=== PATIENT | female | born 1935 | race Caucasian/White ===

== ENCOUNTER 2022-05-05 15:37 | Observation (INO) ==
[2022-05-05] MEDS ORDERED: IOPAMIDOL 100 ML BOTTLE IV ONE (15:38)
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
[2022-05-05 16:42] LABS: POC Calcium, Ionized 1.17 (1.16-1.32); POC Creatinine 0.7 (0.6-1.2)
--- NOTE | 2022-05-05 16:46 | Cat Scan Report ---
History: Migraine headaches, possible TIA TECHNIQUE: The brain was imaged without contrast in axial plane at 2.5 mm intervals. Sagittal and coronal reformats were created. The radiation exposure was limited using dose reduction technology. FINDINGS: Age-related degenerative changes are present with mild generalized cerebral atrophy. Subtle white matter disease is present with decreased attenuation in the centrum semiovale in both frontal and parietal lobes. There is no evidence of an infarct. No hemorrhage or mass effect are present. The ventricles are normal in size. No abnormal extra-axial fluid collection is present. Bone windows show no skull lesion. There has been mild progression of the degenerative changes since the prior head CT done on 12/05/13. IMPRESSION: Normal age-related degenerative changes and no acute abnormality Dr. Elizalde was called with the report Interpreted and Authenticated by: Parker Gardner 05/05/22
[2022-05-05 17:22] LABS: Basophils # (Auto) 0.04 K/mcL (0.00-0.30); Basophils % (Auto) 0.7 % (0.0-2.0); Eosinophils # (Auto) 0.05 K/mcL (0.00-0.70); Eosinophils % (Auto) 0.9 % (0.0-7.0); Hematocrit 35.4 % (34.1-44.9); Hemoglobin 12.1 g/dL (11.2-15.7); Lymphocytes # (Auto) 1.09 K/mcL (1.50-4.80); Lymphocytes % (Auto) 20.1 % (15.5-49.0); Mean Cell Volume 91.5 fL (80.0-100.0); Mean Corpuscular HGB Conc 34.2 g/dL (31.0-36.0); Mean Platelet Volume 9.7 fL (8.8-12.5); Monocytes # (Auto) 0.44 K/mcL (0.10-0.90); Monocytes % (Auto) 8.1 % (1.0-12.0); Neutrophils % (Auto) 69.8 % (38.0-78.0); Platelet Count 260 K/mcL (140-440); RBC 3.87 M/mcL (3.59-5.38); Red Cell Distribution Width 12.8 % (11.5-14.5); WBC 5.4 K/mcL (4.5-11.0)
--- NOTE | 2022-05-05 17:35 | Cat Scan Report ---
History: Severe migraine headaches, neurologic symptoms and possible transient ischemic attack TECHNIQUE: Following injection of intravenous nonionic contrast the arterial phase images were acquired from the ascending aorta to the top of the head. Sagittal and coronal reformats of the head and neck were created along with MIPS, 3-D volume rendered images and curved linear reformats. The radiation exposure was limited using dose reduction technology. FINDINGS: NECK: The aorta and great vessels arising from the aorta are normal in caliber. There is minimal atherosclerotic disease in the aorta. Common carotids are normal. There is a small eccentric plaque along the wall the proximal left internal carotid. There is no plaque formation in the right carotid bifurcation. The internal and external carotids are normal in caliber but tortuous. The vertebral arteries are normal in caliber and nearly symmetric. There is no stenosis or thrombosis of the vertebrals. There is degenerative disc disease and arthritis at multiple levels in the mid and lower cervical spine. Couple small bulla are present in the right apex. Brain: The petrous and cavernous portions of both internal carotids are normal. There is minimal plaque formation in the cavernous portions. There is no stenosis or thrombosis. The anterior and middle cerebral arteries are normal in caliber and symmetric. The intrarenal portions of both vertebrals are normal. The left is dominant. Basilar artery and posterior fossa circulation are normal. Posterior cerebral arteries are normal. There are large bilateral posterior communicating arteries are large anterior communicating artery. There is no intracranial vascular occlusion stenosis or thrombosis. No aneurysm or vascular malformation is present. There is no enhancing lesion. IMPRESSION: Normal exam from an 86-year-old without evidence of vascular occlusion or stenosis Dr. Elizalde was called with the report Interpreted and Authenticated by: Parker Gardner 05/05/22
[2022-05-05 18:38] LABS: Appearance,Urine CLEAR (Clear); Bilirubin,Urine Negative (Negative); Color,Urine STRAW; Culture Indicated,Urine No; Glucose,Urine (UA) Negative (Negative); Ketones,Urine Negative (Negative); Leukocyte Esterase,Urine Negative /uL (Negative); Nitrate,Urine Negative (Negative); Protein,Urine Negative (Negative); Specific Gravity,Urine 1.005 (1.000-1.035); Urine Blood Negative (Negative); Urobilinogen,Urine Negative
[2022-05-05] MEDS ORDERED: ONDANSETRON 4 MG/2 ML VIAL IV PRN (18:43)
[2022-05-05] MEDS ORDERED: ACETAMINOPHEN 325 MG TABLET PO PRN (18:43)
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
[2022-05-05] MEDS ORDERED: SENNOSIDES 1 TABLET PO SCH (21:00)
[2022-05-05] MEDS ORDERED: ATORVASTATIN 40 MG TABLET PO SCH (21:00)
[2022-05-05] MEDS ORDERED: ALPRAZolam 0.5 MG TABLET PO PRN (21:07)
[2022-05-05] MEDS: 0.9 % SODIUM CHLORIDE 10 ML SYRINGE IV SCH (22:44)
[2022-05-05] MEDS: DOCUSATE SODIUM 100 MG CAPSULE PO SCH (22:49)
[2022-05-06] MEDS: 0.9 % SODIUM CHLORIDE 10 ML SYRINGE IV SCH (05:47)
[2022-05-06] MEDS: DOCUSATE SODIUM 100 MG CAPSULE PO SCH (08:52)
[2022-05-06] MEDS ORDERED: ATENOLOL 25 MG TABLET PO SCH (09:00)
[2022-05-06] MEDS ORDERED: ENOXAPARIN 40 MG/0.4 ML SYRINGE SQ SCH (09:00)
[2022-05-06] MEDS ORDERED: ASPIRIN 81 MG TAB.CHEW CHEWED SCH (09:00)
--- NOTE | 2022-05-06 10:09 | Magnetic Resonance Report ---
History: Resolving Expressive aphasia, ocular migraine headaches TECHNIQUE: Brain was imaged using stroke protocol. FINDINGS: There is no infarct, hemorrhage or neoplasm. There is mild generalized cerebral atrophy. The T2 FLAIR sequences reveal several ill-defined zones of increased signal in the centrum semiovale predominantly involving the frontal and parietal lobes with milder involvement in the posterior temporal and occipital lobes. These have no restricted diffusion or mass effect. Ventricles are prominent but proportionate to the atrophy. There is no abnormal extra-axial fluid collection. No abnormality is seen within either orbit. The visualized sinuses are clear. IMPRESSION: No evidence of infarct or acute abnormality. Age-related degenerative changes with no significant change from the recent head CT performed yesterday Interpreted and Authenticated by: Parker Gardner 05/06/22
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
[2022-05-06] MEDS ORDERED: TRIAZOLAM 0.25 MG PO SCH (21:00)
[2022-05-06] MEDS ORDERED: NORTRIPTYLINE 10 MG CAPSULE PO SCH (21:00)
--- NOTE | 2022-05-07 15:59 | EKG ---
[facility] Minor Care Test Date: 2022-05-05 Pat Name: Skye English Department: ED Room: Gender: Female [employer]: ba : [id number] Requested By: Liang Elizalde Order Number: [id number] Reading MD: Gagandeep Elam D.O. Measurements Intervals [place] Rate: 74 P: 50 MN: 165 QRS: 19 QRSD: 95 T: 34 QT: 374 QTc: 415 Interpretive Statements Sinus rhythm Borderline low voltage, extremity leads Subtle ST changes Abnormal R-wave progression, early transition Electronically Signed On 05-07-2022 15:58:54 PST by aGgandeep Elam D.O. /[id number]/[email or web address]/[id number]
== END 2022-05-06 13:30 | disposition home or self-care (01) ==
LOC: MEDSUR 15:37 → ED 15:37 → MEDSUR 19:44
PROVIDERS: ADMIT Student in an Organized Health Care Education/Training Program; ATTEND Student in an Organized Health Care Education/Training Program